=== PATIENT | male | born 1980 ===

== ENCOUNTER 2018-01-31 17:45 | Emergency (ER) | payer SELFPAY ==
[2018-01-31 17:45] VITALS: BMI 21.3
[2018-01-31 18:15] VITALS: RESP 18
--- NOTE | 2018-01-31 20:35 | ED PDOC ---
Upper Extremity Pain/Injury Time Seen by Provider: 01/31/18 18:54 Chief Complaint (Nursing): Upper Extremity Problem/Injury Chief Complaint (Provider): Upper Extremity Weakness Onset/Duration Of Symptoms: Days (x3) Additional Complaint(s): Jamil Lauren is a 37 y/o male with significant past medical history who presents to the ED complaining of left arm weakness, onset x3 days ago. Patient reports having difficulty moving his left hand and fingers, he also states he has pain at his elbow. He admits that the night before he slept in a position where his arm was hanging over the chair. He also states that he does heavy lifting for work and is concerned that this may be the reason. He denies any numbness, headache, neck pain, or trauma. PMD: None provided Past Medical History Reviewed: Historical Data, Nursing Documentation, Vital Signs Vital Signs: Last Vital Signs Temp 98.1 F 01/31/18 18:11 Pulse 71 01/31/18 18:11 Resp 18 01/31/18 18:11 BP 113/56 L 01/31/18 18:11 Pulse Ox 97 01/31/18 18:11 - Medical History PMH: No Chronic Diseases Denies: Chronic Kidney Disease - Family History Family History: States: No Known Family Hx - Social History Current smoker - smoking cessation education provided: Yes (heavy) Alcohol: None Drugs: Denies - Immunization History Hx Tetanus Toxoid Vaccination: No Hx Influenza Vaccination: No Hx Pneumococcal Vaccination: No - Home Medications Home Medications: Ambulatory Orders Medication Instructions Recorded Ibuprofen [Motrin Tab] 600 mg PO Q8 PRN #30 tab 01/31/18 - Allergies Allergies/Adverse Reactions: Allergies Allergy/AdvReac Type Severity Reaction Status Date / Time No Known Allergies Allergy Verified 06/05/16 14:34 Review of Systems Constitutional: Negative for: Fever, Chills Musculoskeletal: Positive for: Arm Pain (left elbow) Skin: Negative for: Rash Neurological: Positive for: Weakness (left hand and fingers). Negative for: Numbness, Headache, Other (deformity or swelling) Physical Exam - Reviewed Nursing Documentation Reviewed: Yes Vital Signs Reviewed: Yes - Physical Exam Appears: Positive for: Non-toxic, No Acute Distress Head Exam: Positive for: ATRAUMATIC, NORMOCEPHALIC Skin: Positive for: Warm, Dry Respiratory: Positive for: Normal Breath Sounds. Negative for: Accessory Muscle Use, Respiratory Distress Pulses-Radial (L): 2+ Extremity: Positive for: Capillary Refill (less than 2 seconds), Other (LUE 1/5 strength with thumb opposition, thumb abduction, finger abduction, and wrist extension. 5/5 strength flexion of wrist and flexion/extension at elbow and movements of shoulder. Light touch is intact in all nerve distribution of hand.) Lymphatic: Negative for: Adenopathy Neurologic/Psych: Positive for: Alert, Motor/Sensory Deficits (see LUE exam) - ECG O2 Sat by Pulse Oximetry: 97 (RA) Pulse Ox Interpretation: Normal Medical Decision Making Medical Decision Making: Time: 19:53 Initial Impression: Brachial plexopathy Differential diagnosis included but not limited to tumor, occult fracture Initial Plan: --RAD - shoulder left --CXR 2 views PA/LAT 2200 CXR no inf/eff, no mass LEFT shoulder: no fx/dislocation/mass Scribe Attestation: Documented by Devonte Gibson, acting as a scribe for Renu Win MD. Provider Scribe Attestation: All medical record entries made by the Scribe were at my direction and personally dictated by me. I have reviewed the chart and agree that the record accurately reflects my personal performance of the history, physical exam, medical decision making, and the department course for this patient. I have also personally directed, reviewed, and agree with the discharge instructions and disposition. 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
[2018-01-31 23:25] VITALS: BP 122/76; PULSE 78; TEMP 98
--- NOTE | 2018-02-01 10:07 | RAD ---
HISTORY: friday night palsy r/o tumor COMPARISON: No prior. TECHNIQUE: Chest PA and lateral FINDINGS: LUNGS: No active pulmonary disease. PLEURA: No significant pleural effusion identified. No pneumothorax apparent. CARDIOVASCULAR: Normal. OSSEOUS STRUCTURES: No significant abnormalities. VISUALIZED UPPER ABDOMEN: Normal. OTHER FINDINGS: None. IMPRESSION: No active disease.
--- NOTE | 2018-02-01 10:08 | RAD ---
PROCEDURE: Radiographs of the Left Shoulder HISTORY: friday night palsy r/o tumor COMPARISON: lNo prior. FINDINGS: BONES: No acute fracture. JOINTS: Unremarkable. SOFT TISSUES: Normal. OTHER FINDINGS: None. IMPRESSION: No demonstrated fracture or dislocation.
[2018-02-01 16:35] VITALS: O2SAT 97
== END 2018-01-31 22:30 | disposition home or self-care (01) ==
LOC: H.ER 17:45
DX: G62.9 Polyneuropathy, unspecified (principal); F17.200 Nicotine dependence, unspecified, uncomplicated